=== PATIENT | male | born 1985 | race Caucasian/White ===

== ENCOUNTER 2024-01-28 15:17 | Emergency (ER) | payer OTHER ==
[~2024-01-28] VITALS: Ht 182.9 cm; Wt 99.1 kg
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
[2024-01-28] MEDS ORDERED: CYCL-837 PO (17:07)
[2024-01-28] MEDS ORDERED: IBUP-1455 PO (17:07)
[2024-01-28 18:00] VITALS: RESP 17
[2024-01-28 18:25] VITALS: BP 133/77; PULSE 72; RESP 18; TEMP 98.5; O2SAT 96
== END 2024-01-28 18:29 | disposition home or self-care (01) ==
LOC: ER 15:17
DX: S40.011A Contusion of right shoulder, initial encounter (principal); S50.01XA Contusion of right elbow, initial encounter; S80.02XA Contusion of left knee, initial encounter; S90.02XA Contusion of left ankle, initial encounter; S00.01XA Abrasion of scalp, initial encounter; Y04.2XXA Assault by strike against or bumped into by another person, initial encounter; Y93.89 Activity, other specified; Y92.89 Other specified places as the place of occurrence of the external cause; Y99.8 Other external cause status
CPT/HCPCS: 73030; 73070; 73100